=== PATIENT | male | born 2005 | race Caucasian/White ===

== ENCOUNTER 2024-02-18 08:27 | Emergency (ER) | payer MEDICAID ==
[~2024-02-18] VITALS: Ht 175.3 cm; Wt 60.0 kg
[2024-02-18 08:34] VITALS: O2SAT 100
[2024-02-18] MEDS ORDERED: DIPHENHYDRAMINE 50MG CAPSULE PO ONE (09:45)
[2024-02-18] MEDS: METOCLOPRAMIDE HCL 10MG TABLET PO ONE (10:41)
[2024-02-18] MEDS: DIPHENHYDRAMINE 25MG CAPSULE PO NR (10:41)
[2024-02-18] MEDS: KETOROLAC 30MG/ML VIAL IM ONE (10:41)
[2024-02-18] MEDS ORDERED: ASPI-1154 PO (11:39)
[2024-02-18 11:50] VITALS: BP 118/70; PULSE 74; RESP 18; TEMP 36.83628; O2SAT 100
== END 2024-02-18 11:51 | disposition home or self-care (01) ==
LOC: ER 08:27
DX: G43.909 Migraine, unspecified, not intractable, without status migrainosus (principal)
CPT/HCPCS: 99285; 70450; 96372; Q0163; J8597; J1885